=== PATIENT | male | born 1975 | race American Indian/Alaskan Native ===

== ENCOUNTER 2019-09-22 06:26 | Day surgery (SDC) | payer MEDICARE ==
[2019-09-22] MEDS ORDERED: ASPIRIN EC 325 MG TAB PO ONE (06:45)
[2019-09-22 07:12] LABS: Basophils % (Auto) 0.7 % (0.0-1.8); Eosinophils % (Auto) 0.7 % (0.0-4.3); Hematocrit 44.1 % (35.5-45.6); Hemoglobin 14.4 gm/dl (11.8-15.2); Lymphocytes # (Auto) 1.9 K/mm3 (1.2-5.4); Lymphocytes % (Auto) 34.3 % (13.4-35.0); Mean Corpuscular HGB Conc 33 % (32-34); Mean Corpuscular Volume 79 fl (84-94); Monocytes # (Auto) 0.6 K/mm3 (0.0-0.8); Monocytes % (Auto) 10.6 % (0.0-7.3)
[2019-09-22 07:22] LABS: BUN/Creatinine Ratio 13; Blood Urea Nitrogen 15 mg/dL (9-20); Calcium 9.2 mg/dL (8.4-10.2); Hemolysis Index 19; INR 1.07 (0.87-1.13); Red Cell Distribution Width 21.8 % (13.2-15.2)
[2019-09-22] MEDS: SODIUM CHLORIDE 0.9% 500 ML 500 ML IV SCH ×2 (07:30→08:55)
[2019-09-22 07:51] LABS: Platelet Count 113 K/mm3 (140-440)
[2019-09-22] MEDS ORDERED: HEPARIN/NS 5000 UNIT/500ML 1,000 ML IR ONE (08:15)
[2019-09-22] MEDS ORDERED: MIDAZOLAM 2 MG/2 ML INJ ONE (08:16)
[2019-09-22] MEDS ORDERED: fentaNYL 100 MCG/2 ML INJ ONE (08:16)
[2019-09-22] MEDS ORDERED: VERAPAMIL 5 MG/2 ML INJ ONE (08:16)
[2019-09-22] MEDS: HEPARIN 10,000 UNITS/10 ML VIAL ONE ×2 (08:59→09:02)
[2019-09-22] MEDS: NITROGLYCERIN SYRINGE 3 ML ONE ×2 (09:01→09:02)
[2019-09-22] MEDS: LIDOCAINE (2%) 20 MG/1 ML VIAL 20 ML MDV INFILTRATI ONE ×2 (09:01→09:17)
--- NOTE | 2019-09-22 10:12 | Short Stay Summary ---
Short Stay Documentation Date of service: 09/22/19 - History H&P: obtained from office - Allergies and Medications Current Medications: Allergies betamethasone Adverse Reaction (Unverified 09/22/19 07:07) Headache delusional shellfish derived Adverse Reaction (Unverified 09/22/19 06:27) Itching Home Medications Medication Instructions Recorded Confirmed Last Taken Type Albuterol Sulfate [Albuterol 0.63% 0.63 mg IH DAILY 09/22/19 09/22/19 09/21/19 History NEBS] Aspirin [Adult Aspirin] 81 mg PO DAILY 09/22/19 09/22/19 09/21/19 History AtorvaSTATin [Lipitor] 20 mg PO DAILY 09/22/19 09/22/19 09/21/19 History Benztropine [Cogentin] 1 mg PO BID PRN 09/22/19 09/22/19 Unknown History Famotidine [Pepcid] 40 mg PO DAILY 09/22/19 09/22/19 09/21/19 History Fluticasone/Vilanterol [Breo 1 puff IH DAILY 09/22/19 09/22/19 09/21/19 History Ellipta 100-25 Mcg INH] Furosemide [Lasix] 20 mg PO QDAY 09/22/19 09/22/19 09/21/19 History Lisinopril [Zestril TAB] 40 mg PO QDAY 09/22/19 09/22/19 09/21/19 History Olmesartan (Nf) [Benicar (Nf)] 20 mg PO QDAY 09/22/19 09/22/19 09/21/19 History Potassium Chloride [Klor-Con] 20 meq PO QDAY 09/22/19 09/22/19 09/21/19 History Scopolamine [Transderm-Scop] 1 each TD Q3D 09/22/19 09/22/19 09/21/19 History carvediloL [Coreg] 3.125 mg PO BID 09/22/19 09/22/19 09/21/19 History risperiDONE [RisperDAL] 8 mg PO DAILY 09/22/19 09/22/19 09/21/19 History Active Medications Sodium Chloride (Nacl 0.9% 500 Ml) 500 mls @ 50 mls/hr IV DIRECT SHANNON Stop: 09/22/19 16:59 Last Admin: 09/22/19 08:55 Dose: 50 mls/hr Documented by: - Physical exam General appearance: no acute distress Integumentary: no rash HEENT: Atraumatic Lungs: Clear to auscultation Breasts: deferred Heart: Regular rate Gastrointestinal: normal Male Genitourinary: deferred Female Genitourinary: deferred Rectal Exam: deferred Extremities: no ischemia Neurological: Normal gait - Brief post op/procedure progress note Date of procedure: 09/22/19 Pre-op diagnosis: Shortness of breath, Pulmonart hypertension Post-op diagnosis: same Procedure: LHC, RHC and LV gram Anesthesia: MAC Findings: See report Surgeon: KAYLA HDEZ Estimated blood loss: none Pathology: none Condition: stable - Hospital course Hospital course: Uneventful - Disposition Condition at discharge: Good Disposition: [id number] TO HOME OR SELFCARE Short Stay Discharge Plan Activity: advance as tolerated Weight Bearing Status: Partial Weight Bearing Diet: low fat, low cholesterol, low salt Special Instructions: restrict fluid intake to (50 ounces per day) Follow up with: ELLIS MANCILLA MD [Primary Care Provider] - 7 Days Prescriptions: Furosemide [Lasix TAB] 40 mg PO QDAY #30
--- NOTE | 2019-09-22 11:27 | Cardiac Catherization Report ---
LEFT AND RIGHT HEART CATHETERIZATION INDICATIONS: Shortness of breath, pulmonary hypertension, cardiomyopathy. ORDERING PHYSICIAN: Ham Rai MD PROCEDURES PERFORMED: 1. Selective left and right coronary angiography. 2. Left ventriculography. 3. Right heart catheterization with hemodynamic measurement and oxygen saturation run. DESCRIPTION OF PROCEDURE: After obtaining written consent, the patient was draped using sterile technique. A 2% lidocaine was injected into the right wrist. A 6-Brazilian vascular sheath was inserted into the right radial artery, a 6-Brazilian JL3.5 catheter was used to selectively engage left coronary artery, a 6-Brazilian JR4 catheter was used to selectively engage the right coronary artery. A 6-Brazilian JR4 catheter was used to hand inject the left ventriculogram. Using a micropuncture technique, a 6-Brazilian vascular sheath was inserted into the right femoral vein. A 6-Brazilian Jellico-Alonso catheter was used to measure right-sided hemodynamics and perform oxygen saturation run. No complications occurred during the procedure. ESTIMATED BLOOD LOSS: Minimal. SPECIMEN REMOVED: None. TOTAL SEDATION ADMINISTERED: 1 mg of IV Versed and 50 mcg of IV fentanyl. PHYSICIAN AND PATIENT FACE TO FACE SEDATION START TIME: 8:59 a.m. PHYSICIAN AND PATIENT FACE TO FACE SEDATION STOP TIME: 9:28 a.m. TOTAL SEDATION TIME: 29 minutes. FINDINGS: HEMODYNAMICS: 1. The mean pulmonary capillary wedge pressure is 35 mmHg. Pulmonary artery systolic pressure is 69 mmHg. Pulmonary artery diastolic pressure is 27 mmHg and mean pulmonary artery pressure of 49 mmHg, right ventricular systolic pressure is 66 mmHg. Right ventricular end-diastolic pressure 21 mmHg. 2. Mean right atrial pressure 20 mmHg. 3. The LV systolic pressure was 166 with an LV end-diastolic pressure of 31 mmHg. The aortic systolic pressure was 159 mmHg with a diastolic pressure of 99 mmHg. No gradient was noted across the left ventricular outflow tract. 4. The Janice cardiac output was 12.47 with a Janice cardiac index of 4.85 L per minute per m2. 5. The calculated transpulmonary gradient is 14 with a pulmonary vascular resistance of 1.12 Blas units. CARDIAC STRUCTURES: The left ventricular cavity is dilated. There is moderate global left ventricular hypokinesis. The left ventricular ejection fraction is estimated between 35% and 40%. CORONARY ANATOMY: 1. This is a left dominant circulation. 2. The left main is angiographically normal. 3. The LAD is angiographically normal. 4. The left circumflex artery is a large dominant vessel that is angiographically normal. 5. The right coronary artery is a small nondominant vessel that is angiographically normal. IMPRESSION: 1. Severely elevated left and right-sided filling pressures with a mean pulmonary capillary wedge pressure of 35 mmHg, mean right arterial pressure of 20 mmHg and the left ventricular end-diastolic pressure of 31 mmHg. 2. Evidence of [id number] group 2 pulmonary hypertension secondary to left-sided diastolic heart failure. The calculated transpulmonary gradient is 14 with a normal pulmonary vascular resistance estimated at 1.1 Blas units. 3. Preserved cardiac output with no evidence of an intracardiac shunt. 4. Angiographically normal left dominant circulation. 5. Moderate global left ventricular hypokinesis with an ejection fraction estimated between 35% and 40%. RECOMMENDATION: 1. 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 2. Optimize diuresis and afterload reduction. 3. No evidence of group 1 pulmonary arterial hypertension. JOB# [id number] HALLE/NANCY
[2019-09-22 13:22] VITALS: BP 163/75
== END 2019-09-22 13:00 | disposition home or self-care (01) ==
LOC: CATHLABREC 06:26
PROVIDERS: ATTEND Internal Medicine
DX: R06.02 Shortness of breath (principal); I27.20 Pulmonary hypertension, unspecified; I42.9 Cardiomyopathy, unspecified; I11.0 Hypertensive heart disease with heart failure; J44.9 Chronic obstructive pulmonary disease, unspecified; G47.30 Sleep apnea, unspecified; K21.9 Gastro-esophageal reflux disease without esophagitis; I50.9 Heart failure, unspecified; Z91.013 Allergy to seafood; Z79.899 Other long term (current) drug therapy; Z79.82 Long term (current) use of aspirin; Z87.891 Personal history of nicotine dependence; Z98.890 Other specified postprocedural states; Z88.8 Allergy status to other drugs, medicaments and biological substances
CPT/HCPCS: 36415; 80048; 85025; 85610; 85730; 93005; 93010; 93460; 99156; 99157; C1769; C1894; J1644; J2250; J3010; J7040; Q9967